=== PATIENT | female | born 1945 | race Caucasian/White ===

== ENCOUNTER 2016-12-15 12:20 | Emergency (ER) | payer MEDICAID ==
[2016-12-15 14:17] VITALS: BP 127/73
== END 2016-12-15 14:40 | disposition home or self-care (01) ==
LOC: ED 12:20
DX: N39.0 Urinary tract infection, site not specified (principal); I10 Essential (primary) hypertension; E11.9 Type 2 diabetes mellitus without complications
CPT/HCPCS: J1885; J7030